=== PATIENT | male | born 1990 | race Caucasian/White ===

== ENCOUNTER 2023-05-22 08:36 | Outpatient (REF) | payer MEDICAID, SELFPAY ==
--- NOTE | ~2023-05-22 | US_ITS ---
EXAMINATION: US ABDOMEN COMPLETE CLINICAL INFORMATION: Right upper quadrant pain. COMPARISON: None available. TECHNIQUE: Real-time imaging of the abdominal viscera. Technically difficult study secondary to body habitus. FINDINGS: PANCREAS: Normal. ABDOMINAL AORTA: The proximal, mid, and distal segments are normal in caliber. INFERIOR VENA CAVA: Visualized portions are normal. LIVER: The liver is normal in size. The liver contour is normal. There is diffuse increased liver parenchymal echogenicity. No focal hepatic lesion. There is no intrahepatic biliary duct dilatation seen. GALLBLADDER: There is marked cholelithiasis, with a wall echo-shadow complex. There is no gallbladder wall thickening or pericholecystic fluid. COMMON BILE DUCT: Normal in caliber measuring 0.2 cm in diameter. RIGHT KIDNEY: Normal. No hydronephrosis. No renal calculi or focal parenchymal lesions. The kidney measures 13.9 cm in maximum dimension. LEFT KIDNEY: Normal. No hydronephrosis. No renal calculi or focal parenchymal lesions. The kidney measures 13.5 cm in maximum dimension. SPLEEN: Normal. The spleen measures 12.3 cm in maximum dimension. FREE FLUID: None. US/US abdomen complete IMPRESSION: 1. There is generalized increase in hepatic echotexture, consistent with fatty infiltration or hepatocellular disease. Please correlate clinically. No focal hepatic mass or intrahepatic biliary dilatation is seen. 2. There is marked cholelithiasis, without cholecystitis seen.
== END 2023-05-22 08:37 | disposition home or self-care (01) ==
LOC: HO.US 08:36
PROVIDERS: Visit Provider Hospitalist
DX: R10.11 Right upper quadrant pain (principal)
CPT/HCPCS: 76700

== ENCOUNTER 2025-06-23 12:07 | Outpatient (AMB) | payer MEDICAID, SELFPAY ==
--- NOTE | 2025-06-23 12:40 | MHC.OFFVIS ---
Intake Visit Reasons: Follow up Allergies doxycycline Allergy (Unknown, Verified 04/18/25 13:27) Unknown erythromycin base Allergy (Unknown, Verified 04/18/25 13:27) Unknown penicillin G Allergy (Unknown, Verified 04/18/25 13:27) Unknown Medication List - Last Reconciled 06/23/25 by Ibis Dorantes MD carbamazepine ER (Carbatrol) 600 mg PO BID cariprazine 3 mg PO DAILY clozapine 50 mg PO DAILY levetiracetam ER 1,000 mg PO DAILY loratadine 10 mg PO DAILY lorazepam 1 mg PO BEDTIME PRN pantoprazole 40 mg PO DAILY propranolol XL (Inderal XL) 80 mg PO BEDTIME HPI Comments Details: 34 years old man with morbid obesity and epilepsy. He had fallen an young age and might have sustained brain injury. In 10 years he started having seizures. Seizures included complex partial type. He had epilepsy surgery at [facility] that did not resolve with seizures and later he had a vagus nerve stimulator. He did not have anymore seizures since we last met. [facility] Medical History (Updated 06/23/25 @ 12:42 by Ibis Dorantes MD) Bipolar disorder Obesity Complex partial seizure Epilepsy Surgical History (Updated 06/23/25 @ 12:41 by Ibis Dorantes MD) S/P placement of VNS (vagus nerve stimulation) device Review of Systems Const Details: No seizures or any significant behavioral symptoms Physical Exam Neuro Other: He is alert and awake with normal spontaneity of speech fluency comprehension and flat affect. Assessment & Plan Assessment & Plan (1) Epilepsy: Comment: VNS placed in [place] Dec 04, 2015 EEG at office in Nov 2020: Abn wtih sharp and slow waves EEG at [facility] in 2019: WNL. 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 Rec: a: VNS is not working but he is not having too many seizures at this time. b: Carbamazepine 200mg, 3, twice a day c: Levetiracetam 500mg, 1, twice a day d: LFTs, carbamazepine level Orders: Orders Liver Panel Today G40.509 - Epileptic seizures related to external causes, not intractable, without status epilepticus Carbamazepine Tegretol Today G40.509 - Epileptic seizures related to external causes, not intractable, without status epilepticus Coding Level of Care Code Est Pt Level 4 (00993) Diagnoses Nonintractable epilepsy due to external causes, without status epilepticus G40.509 Epilepsy type: due to external causes Intractability: not intractable Status epilepticus: without status epilepticus S/P placement of VNS (vagus nerve stimulation) device Z96.89
--- OUTSIDE RECORDS SUMMARY | 2025-06-23 16:43 | XMS_ITS | Encounter Summary ---
Author Organization [facility] Address [address] [place] [address] Care Team Providers Care Tool Maintenance Technician Name Role Phone Felix Iglesias MD Primary Care Provider [phone] Encounter Details Date Type Department Care Team (Late st Contact Info) Description 01/20/2025 Lab Requisition [facility] [address] [facility] [place] [address] Felix Iglesias MD [address] [place] [address] Dr [address] [place], [place] Other halfway (current) drug therapy Social History Tobacco Use Types Packs/Day Years Used Date Smoking Tobacco: Never Assessed Sex and Gender Information Value Date Recorded Sex Assigned at Not on file Legal Sex Male 9:12 PM EST Gender Identity Not on file Sexual Orientation Not on file documented as of this encounter Plan of Treatment Not on file documented as of this encounter Procedures Procedure Name Priority Date/Time Associated Diagnosis Comments CBC WITH AUTO DIFFERENTIAL Routine 01/20/2025 12:00 AM EDT Other termination clerk (current) drug therapy CBC AND DIFFERENTIAL Routine 01/20/2025 12:00 AM EDT Other halfway (current) drug therapy documented in this encounter Results * (ABNORMAL) CBC auto differential (01/20/2025 12:00 AM EDT) WBC 12.6(H) 4.8 - 10.8 K/[facility] LAB HEMETOLOGY METHOD 01/20/2025 8:[address] [facility] RBC 5.00 4.50 - 5.50 M/mcL LAB HEMETOLOGY METHOD 01/20/2025 8:[address] [facility] Hemoglobin 15.3 13.5 - 17.5 g/dL LAB HEMETOLOGY METHOD 01/20/2025 8:[address] [facility] Hematocrit 45.4 42.0 - 54.0 % LAB HEMETOLOGY METHOD 01/20/2025 8:[address] [facility] MCV 90.6 79.0 - 98.0 FL LAB HEMETOLOGY METHOD 01/20/2025 8:[address] [facility] MCH 30.5 27.0 - 32.0 pcg LAB HEMETOLOGY METHOD 01/20/2025 8:[address] [facility] MCHC 33.7 32.0 - 37.0 g/dL LAB HEMETOLOGY METHOD 01/20/2025 8:[address] [facility] RDW 12.3 11.0 - 15.0 % LAB HEMETOLOGY METHOD 01/20/2025 8:[address] [facility] Platelets 327 130 - 400 K/mcL LAB HEMETOLOGY METHOD 01/20/2025 8:[address] [facility] MPV 9.6 7.0 - 11.0 FL LAB HEMETOLOGY METHOD 01/20/2025 8:[address] [facility] NRBC 0.0 <1.0 % LAB HEMETOLOGY METHOD 01/20/2025 8:[address] [facility] NRBC Absolute 0.00 <0.10 K/mcL LAB HEMETOLOGY METHOD 01/20/2025 8:[address] [facility] Neutrophils Relative 62.8 % LAB HEMETOLOGY METHOD 01/20/2025 8:[address] [facility] Lymphocytes Relative 26.3 % LAB HEMETOLOGY METHOD 01/20/2025 8:[address] [facility] Monocytes Relative 6.5 % LAB HEMETOLOGY METHOD 01/20/2025 8:[address] [facility] Eosinophils Relative 3.6 % LAB HEMETOLOGY METHOD 01/20/2025 8:[address] [facility] Basophils Relative 0.4 % LAB HEMETOLOGY METHOD 01/20/2025 8:[address] [facility] Immature Granulocytes Relative 0.4 % LAB HEMETOLOGY METHOD 01/20/2025 8:[address] [facility] Neutrophils Absolute 7.92(H) 1.50 - 7.00 K/mcL LAB HEMETOLOGY METHOD 01/20/2025 8:[address] [facility] Lymphocytes Absolute 3.32 1.00 - 5.00 K/mcL LAB HEMETOLOGY METHOD 01/20/2025 8:[address] [facility] Monocytes Absolute 0.82 0.20 - 1.00 K/mcL LAB HEMETOLOGY METHOD 01/20/2025 8:[address] [facility] Eosinophils Absolute 0.46 0.00 - 0.50 K/mcL LAB HEMETOLOGY METHOD 01/20/2025 8:[address] [facility] Basophils Absolute 0.05 0.00 - 0.20 K/mcL LAB HEMETOLOGY METHOD 01/20/2025 8:[address] [facility] Immature Granulocytes Absolute 0.05(H) 0.00 - 0.03 K/mcL LAB HEMETOLOGY METHOD 01/20/2025 8:[address] [facility] Blood Venous blood specimen / Unknown 01/20/2025 01/20/2025 7:44 AM EDT us Felix Iglesias MD LAB BLOOD ORDERABLES Final Resul t [facility] [address] [place] [address], documented in this encounter Visit Diagnoses Diagnosis Other termination clerk (current) drug therapy documented in this encounter Care Teams Tool Maintenance Technician Relationship Specialty Start Date End Date Felix Iglesias MD [address] [place] Dan PCP - General Internal Medicine 11/25/24 documented as of this encounter
--- OUTSIDE RECORDS SUMMARY | 2025-06-23 16:43 | XMS_ITS | Encounter Summary ---
Author Organization [facility] Address [address] [place] [address] Care Team Providers Care Well Treatment Offsider Name Role Phone Felix Iglesias MD Primary Care Provider [phone] Encounter Details Date Type Department Care Team (Late st Contact Info) Description 02/17/2025 Lab Requisition [facility] [address] [facility] [place] [address] Felix Iglesias MD [address] [place] [address] Dr [address] [place], [place] Other intermediate (current) drug therapy Social History Tobacco Use [...] Diagnosis Comments CBC WITH AUTO DIFFERENTIAL Routine 02/17/2025 6:30 AM EDT Other intermediate (current) drug therapy CBC AND DIFFERENTIAL Routine 02/17/2025 6:30 AM EDT Other intermediate (current) drug therapy THYROID STIMULATING HORMONE Routine 02/17/2025 6:30 AM EDT Other intermodal owner operator truck driver (current) drug therapy AMMONIA Routine 02/17/2025 6:30 AM EDT Other intermediate (current) drug therapy documented in this encounter Results * CBC auto differential (02/17/2025 6:30 AM EDT) WBC 10.4 4.8 - 10.8 K/mcL LAB HEMETOLOGY METHOD 02/17/2025 7:16 AM [facility] RBC 4.80 4.50 - 5.50 M/mcL LAB HEMETOLOGY METHOD 02/17/2025 7:16 AM [facility] Hemoglobin 14.3 13.5 - 17.5 g/dL LAB HEMETOLOGY METHOD 02/17/2025 7:16 AM [facility] Hematocrit 42.5 42.0 - 54.0 % LAB HEMETOLOGY METHOD 02/17/2025 7:16 AM [facility] MCV 89.3 79.0 - 98.0 FL LAB HEMETOLOGY METHOD 02/17/2025 7:16 AM [facility] MCH 30.0 27.0 - 32.0 pcg LAB HEMETOLOGY METHOD 02/17/2025 7:16 AM [facility] MCHC 33.6 32.0 - 37.0 g/dL LAB HEMETOLOGY METHOD 02/17/2025 7:16 AM [facility] RDW 12.2 11.0 - 15.0 % LAB HEMETOLOGY METHOD 02/17/2025 7:16 AM [facility] Platelets 288 130 - 400 K/mcL LAB HEMETOLOGY METHOD 02/17/2025 7:16 AM [facility] MPV 9.6 7.0 - 11.0 FL LAB HEMETOLOGY METHOD 02/17/2025 7:16 AM [facility] NRBC 0.0 <1.0 % LAB HEMETOLOGY METHOD 02/17/2025 7:16 AM [facility] NRBC Absolute 0.00 <0.10 K/mcL LAB HEMETOLOGY METHOD 02/17/2025 7:16 AM [facility] Neutrophils Relative 60.9 % LAB HEMETOLOGY METHOD 02/17/2025 7:16 AM [facility] Lymphocytes Relative 28.3 % LAB HEMETOLOGY METHOD 02/17/2025 7:16 AM [facility] Monocytes Relative 6.9 % LAB HEMETOLOGY METHOD 02/17/2025 7:16 AM [facility] Eosinophils Relative 3.2 % LAB HEMETOLOGY METHOD 02/17/2025 7:16 AM [facility] Basophils Relative 0.4 % LAB HEMETOLOGY METHOD 02/17/2025 7:16 AM [facility] Immature Granulocytes Relative 0.3 % LAB HEMETOLOGY METHOD 02/17/2025 7:16 AM [facility] Neutrophils Absolute 6.37 1.50 - 7.00 K/mcL LAB HEMETOLOGY METHOD 02/17/2025 7:16 AM [facility] Lymphocytes Absolute 2.95 1.00 - 5.00 K/mcL LAB HEMETOLOGY METHOD 02/17/2025 7:16 AM [facility] Monocytes Absolute 0.72 0.20 - 1.00 K/mcL LAB HEMETOLOGY METHOD 02/17/2025 7:16 AM [facility] Eosinophils Absolute 0.33 0.00 - 0.50 K/mcL LAB HEMETOLOGY METHOD 02/17/2025 7:16 AM [facility] Basophils Absolute 0.04 0.00 - 0.20 K/mcL LAB HEMETOLOGY METHOD 02/17/2025 7:16 AM [facility] Immature Granulocytes Absolute 0.03 0.00 - 0.03 K/mcL LAB HEMETOLOGY METHOD 02/17/2025 7:16 AM [facility] Blood Venous blood specimen / Unknown 02/17/2025 6:30 AM EDT 02/17/2025 7:10 AM EDT us Felix Iglesias MD LAB BLOOD ORDERABLES Final Resul t Performing Organization Address [facility] de Phone Number [facility] [address] [place] [address], [place] [phone] * Thyroid stimulating hormone (02/17/2025 6:30 AM EDT) TSH 2.34 0.40 - 4.00 mcIU/mL LAB CHEMISTRY METHOD 02/17/2025 10:09 AM EDT [facility] Blood Venous blood specimen / Unknown 02/17/2025 6:30 AM EDT 02/17/2025 7:10 AM EDT us Felix Iglesias MD LAB BLOOD ORDERABLES Final Resul t Performing Organization Address [facility] de Phone Number [facility] [address] [place] [address], [place] [phone] * Ammonia (02/17/2025 6:30 AM EDT) Ammonia 18 11 - 35 mcmol/L LAB CHEMISTRY METHOD 02/17/2025 7:29 AM EDT [facility] Blood Venous blood specimen / Unknown 02/17/2025 6:30 AM EDT 02/17/2025 7:10 AM EDT us Felix Iglesias MD LAB BLOOD ORDERABLES Final Resul t Performing Organization Address [facility] de Phone Number [facility] [address] [place] [address], [place] [phone] documented in this encounter Visit Diagnoses Diagnosis Other intermediate (current) drug therapy documented in this encounter Care Teams Well Treatment Offsider Relationship Specialty Start Date End Date Felix Iglesias MD [address] [place] [address] Dr Marty Dan [place] PCP - General Internal Medicine 11/25/24 documented as of this encounter
--- OUTSIDE RECORDS SUMMARY | 2025-06-23 16:43 | XMS_ITS | Encounter Summary ---
Author Organization [facility] Address [address] [place] [address] Care Team Providers Care Cocoa Bean Roaster Name Role Phone Felix Iglesias MD Primary Care Provider Encounter Details Date Type Department Care Team (Late st Contact Info) Description 11/25/2024 Lab Requisition [facility] Lab [address] [facility] [place] [address] Felix Iglesias MD [address] [place] [address] [address] [place] Other ferry terminal agent (current) drug therapy; Localization-related (focal) (partial) symptomatic epilepsy and epileptic syndromes with complex partial seizures, not intractable, without status epilepticus (CMS/HCC V24, CMS/HCC V28); Hyperlipidemia, unspecified Social History Tobacco Use Types Packs/Day Years [...] Procedure Name Priority Date/Time Associated Diagnosis Comments LIPID PANEL WITH REFLEX TO DIRECT LDL Routine 11/25/2024 7:20 AM EST Other ferry terminal agent (current) drug therapy Localization-relate d (focal) (partial) symptomatic epilepsy and epileptic syndromes with complex partial seizures, not intractable, without status epilepticus (CMS/HCC) Hyperlipidemia, unspecified CBC WITH AUTO DIFFERENTIAL Routine 11/25/2024 7:20 AM EST Other ferry terminal agent (current) drug therapy Localization-relate d (focal) (partial) symptomatic epilepsy and epileptic syndromes with complex partial seizures, not intractable, without status epilepticus (CMS/HCC) Hyperlipidemia, unspecified LEVETIRACETAM LEVEL Routine 11/25/2024 7 :20 AM EST Other detention (current) drug therapy Localization-relate d (focal) (partial) symptomatic epilepsy and epileptic syndromes with complex partial seizures, not intractable, without status epilepticus (CMS/HCC) Hyperlipidemia, unspecified CBC AND DIFFERENTIAL Routine 11/25/2024 7:20 AM EST Other detention (current) drug therapy Localization-relate d (focal) (partial) symptomatic epilepsy and epileptic syndromes with complex partial seizures, not intractable, without status epilepticus (CMS/HCC) Hyperlipidemia, unspecified CARBAMAZEPINE LEVEL, TOTAL Routine 11/25/2024 7:20 AM EST Other detention (current) drug therapy Localization-relate d (focal) (partial) symptomatic epilepsy and epileptic syndromes with complex partial seizures, not intractable, without status epilepticus (CMS/HCC) Hyperlipidemia, unspecified documented in this encounter Results * CBC auto differential (11/25/2024 7:20 AM EST) WBC 9.8 4.8 - 10.8 K/mcL LAB HEMETOLOGY METHOD 11/25/2024 8:12 AM [facility] RBC 5.10 4.50 - 5.50 M/mcL LAB HEMETOLOGY METHOD 11/25/2024 8:12 AM [facility] Hemoglobin 15.6 13.5 - 17.5 g/dL LAB HEMETOLOGY METHOD 11/25/2024 8:12 AM [facility] Hematocrit 47.2 42.0 - 54.0 % LAB HEMETOLOGY METHOD 11/25/2024 8:12 AM [facility] MCV 92.2 79.0 - 98.0 FL LAB HEMETOLOGY METHOD 11/25/2024 8:12 AM [facility] MCH 30.5 27.0 - 32.0 pcg LAB HEMETOLOGY METHOD 11/25/2024 8:12 AM [facility] MCHC 33.1 32.0 - 37.0 g/dL LAB HEMETOLOGY METHOD 11/25/2024 8:12 AM [facility] RDW 12.3 11.0 - 15.0 % LAB HEMETOLOGY METHOD 11/25/2024 8:12 AM [facility] Platelets 292 130 - 400 K/mcL LAB HEMETOLOGY METHOD 11/25/2024 8:12 AM [facility] MPV 10.3 7.0 - 11.0 FL LAB HEMETOLOGY METHOD 11/25/2024 8:12 AM [facility] NRBC 0.0 <1.0 % LAB HEMETOLOGY METHOD 11/25/2024 8:12 AM [facility] NRBC Absolute 0.00 <0.10 K/mcL LAB HEMETOLOGY METHOD 11/25/2024 8:12 AM [facility] Neutrophils Relative 61.3 % LAB HEMETOLOGY METHOD 11/25/2024 8:12 AM [facility] Lymphocytes Relative 27.8 % LAB HEMETOLOGY METHOD 11/25/2024 8:12 AM [facility] Monocytes Relative 6.8 % LAB HEMETOLOGY METHOD 11/25/2024 8:12 AM [facility] Eosinophils Relative 3.5 % LAB HEMETOLOGY METHOD 11/25/2024 8:12 AM [facility] Basophils Relative 0.3 % LAB HEMETOLOGY METHOD 11/25/2024 8:12 AM [facility] Immature Granulocytes Relative 0.3 % LAB HEMETOLOGY METHOD 11/25/2024 8:12 AM [facility] Neutrophils Absolute 5.99 1.50 - 7.00 K/mcL LAB HEMETOLOGY METHOD 11/25/2024 8:12 AM [facility] Lymphocytes Absolute 2.72 1.00 - 5.00 K/mcL LAB HEMETOLOGY METHOD 11/25/2024 8:12 AM EST [facility] Monocytes Absolute 0.66 0.20 - 1.00 K/mcL LAB HEMETOLOGY METHOD 11/25/2024 8:12 AM EST [facility] Eosinophils Absolute 0.34 0.00 - 0.50 K/mcL LAB HEMETOLOGY METHOD 11/25/2024 8:12 AM EST [facility] Basophils Absolute 0.03 0.00 - 0.20 K/mcL LAB HEMETOLOGY METHOD 11/25/2024 8:12 AM EST [facility] Immature Granulocytes Absolute 0.03 0.00 - 0.03 K/mcL LAB HEMETOLOGY METHOD 11/25/2024 8:12 AM EST [facility] Blood Venous blood specimen / Unknown 11/25/2024 7:20 AM EST 11/25/2024 7:54 AM EST Felix Iglesias MD LAB BLOOD ORDERABLES Final Resul t [facility] [address] [place] [address], * Levetiracetam level (11/25/2024 7:20 AM EST) Levetiracetam 6.1 3.0 - 60.0 ug/mL 11/27/2024 7:19 AM EST [facility] Comment: Steady state trough serum or plasma levels following doses of 1000 to 3000 mg/Day: 3 to 37 ug/mL. The same dosage regimen will typically result in peak levels of 10 to 60 ug/mL, at approximately 1.5 hours post dose. If applicable, any drug confirmation testing reported here was developed and the performance characteristics determined by [facility]. This confirmation testing has not been cleared or approved by the FDA. The laboratory is regulated under CLIA as qualified to perform high-complexity testing. This test is used for patient testing purposes. It should not be regarded as investigational or for research. Test performed at [facility], [address], [place] [address] Aleta Lipscomb MD, PhD - Reed Maker Blood Venous blood specimen / Unknown 11/25/2024 7:20 AM EST 11/25/2024 7:54 AM EST us Felix Iglesias MD LAB BLOOD ORDERABLES Final Resul t [facility] [address] [place] [address] * Carbamazepine level, total (11/25/2024 7:20 AM EST) Carbamazepine Level 9.6 8.0 - 12.0 mcg/mL LAB CHEMISTRY METHOD 11/25/2024 8:22 AM EST [facility] Blood Venous blood specimen / Unknown 11/25/2024 7:20 AM EST 11/25/2024 7:54 AM EST us Felix Iglesias MD LAB BLOOD ORDERABLES Final Resul t Performing Organization Address City/[facility]/ZIP Co de Phone Number [facility] [address] [place] [address], [place] [phone] * (ABNORMAL) Lipid panel with reflex to direct LDL (11/25/2024 7:20 AM EST) Cholesterol 199 0 - 200 mg/dL LAB CHEMISTRY METHOD 11/25/2024 8:22 AM EST [facility] Triglycerides 143 0 - 150 mg/dL LAB CHEMISTRY METHOD 11/25/2024 8:22 AM EST [facility] HDL 44 >=40 mg/dL LAB CHEMISTRY METHOD 11/25/2024 8:22 AM EST [facility] LDL Calculated 126(H) 0 - 100 mg/dL LAB CHEMISTRY METHOD 11/25/2024 8:22 AM EST [facility] VLDL Cholesterol Amadeo 28.6 mg/dL LAB CHEMISTRY METHOD 11/25/2024 8:22 AM EST [facility] Non HDL Chol. (LDL+VLDL) 155(H) <145 mg/dL LAB CHEMISTRY METHOD 11/25/2024 8:22 AM EST [facility] Chol/HDL Ratio 4.5(H) 0.0 - 4.4 LAB CHEMISTRY METHOD 11/25/2024 8:22 AM EST [facility] Blood Venous blood specimen / Unknown 11/25/2024 7:20 AM EST 11/25/2024 7:54 AM EST us Felix Iglesias MD LAB BLOOD ORDERABLES Final Resul t [facility] [address] [place] [address], documented in this encounter Visit Diagnoses Diagnosis Other detention (current) drug therapy Localization-related (focal) (partial) symptomatic epilepsy and epileptic syndromes with complex partial seizures, not intractable, without status epilepticus (CMS/HCC V24, CMS/HCC V28) Hyperlipidemia, unspecified documented in this encounter Care Teams Cocoa Bean Roaster Relationship Specialty Start Date End Date Felix Iglesias MD [address] [place], [place] PCP - General Internal Medicine 11/25/24 documented as of this encounter
--- OUTSIDE RECORDS SUMMARY | 2025-06-23 16:43 | XMS_ITS | Encounter Summary ---
Author Organization [facility] Address [address] [place] [address] Care Team Providers Care Upward Bound Director Name Role Phone Felix Iglesias MD Primary Care Provider [phone] Encounter Details Date Type Department Care Team (Late st Contact Info) Description 05/12/2025 Lab Requisition [facility] Lab [address] [facility] [place] [address] Felix Iglesias MD [address] [place] [address] Dr [address] [place], [place] Other senior care (current) drug therapy Social History Tobacco Use [...] Diagnosis Comments CBC WITH AUTO DIFFERENTIAL Routine 05/12/2025 6:21 AM EDT Other senior care (current) drug therapy CBC AND DIFFERENTIAL Routine 05/12/2025 6:21 AM EDT Other senior care (current) drug therapy documented in this encounter Results * CBC auto differential (05/12/2025 6:21 AM EDT) WBC 10.3 4.8 - 10.8 K/[facility] LAB HEMETOLOGY METHOD 05/12/2025 8:41 AM EDT [facility] LAB RBC 5.20 4.50 - 5.50 M/mcL LAB HEMETOLOGY METHOD 05/12/2025 8:41 AM EDT [facility] LAB Hemoglobin 15.7 13.5 - 17.5 g/dL LAB HEMETOLOGY METHOD 05/12/2025 8:41 AM [facility] LAB Hematocrit 46.9 42.0 - 54.0 % LAB HEMETOLOGY METHOD 05/12/2025 8:41 AM [facility] LAB MCV 90.4 79.0 - 98.0 FL LAB HEMETOLOGY METHOD 05/12/2025 8:41 AM [facility] LAB MCH 30.3 27.0 - 32.0 pcg LAB HEMETOLOGY METHOD 05/12/2025 8:41 AM [facility] LAB MCHC 33.5 32.0 - 37.0 g/dL LAB HEMETOLOGY METHOD 05/12/2025 8:41 AM [facility] LAB RDW 12.5 11.0 - 15.0 % LAB HEMETOLOGY METHOD 05/12/2025 8:41 AM [facility] LAB Platelets 277 130 - 400 K/mcL LAB HEMETOLOGY METHOD 05/12/2025 8:41 AM [facility] LAB MPV 10.0 7.0 - 11.0 FL LAB HEMETOLOGY METHOD 05/12/2025 8:41 AM [facility] LAB NRBC 0.0 <1.0 % LAB HEMETOLOGY METHOD 05/12/2025 8:41 AM [facility] LAB NRBC Absolute 0.00 <0.10 K/mcL LAB HEMETOLOGY METHOD 05/12/2025 8:41 AM [facility] LAB Neutrophils Relative 57.0 % LAB HEMETOLOGY METHOD 05/12/2025 8:41 AM [facility] LAB Lymphocytes Relative 28.8 % LAB HEMETOLOGY METHOD 05/12/2025 8:41 AM [facility] LAB Monocytes Relative 9.1 % LAB HEMETOLOGY METHOD 05/12/2025 8:41 AM [facility] LAB Eosinophils Relative 4.2 % LAB HEMETOLOGY METHOD 05/12/2025 8:41 AM EDT [facility] LAB Basophils Relative 0.6 % LAB HEMETOLOGY METHOD 05/12/2025 8:41 AM [facility] LAB Immature Granulocytes Relative 0.3 % LAB HEMETOLOGY METHOD 05/12/2025 8:41 AM EDT [facility] LAB Neutrophils Absolute 5.86 1.50 - 7.00 K/mcL LAB HEMETOLOGY METHOD 05/12/2025 8:41 AM EDT [facility] LAB Lymphocytes Absolute 2.96 1.00 - 5.00 K/mcL LAB HEMETOLOGY METHOD 05/12/2025 8:41 AM [facility] LAB Monocytes Absolute 0.93 0.20 - 1.00 K/mcL LAB HEMETOLOGY METHOD 05/12/2025 8:41 AM EDT [facility] LAB Eosinophils Absolute 0.43 0.00 - 0.50 K/mcL LAB HEMETOLOGY METHOD 05/12/2025 8:41 AM EDT [facility] LAB Basophils Absolute 0.06 0.00 - 0.20 K/mcL LAB HEMETOLOGY METHOD 05/12/2025 8:41 AM [facility] LAB Immature Granulocytes Absolute 0.03 0.00 - 0.03 K/mcL LAB HEMETOLOGY METHOD 05/12/2025 8:41 AM [facility] LAB Blood Venous blood specimen / Unknown 05/12/2025 6:21 AM EDT 05/12/2025 8:26 AM EDT us Felix Iglesias MD LAB BLOOD ORDERABLES Final Resul t [facility] LAB [address] [place] [address], documented in this encounter Visit Diagnoses Diagnosis Other senior care (current) drug therapy documented in this encounter Care Teams Upward Bound Director Relationship Specialty Start Date End Date Felix Iglesias MD [address] [place] [address] Dr [address] ALLEGRA Dan PCP - General Internal Medicine 11/25/24 documented as of this encounter
--- OUTSIDE RECORDS SUMMARY | 2025-06-23 16:43 | XMS_ITS | Encounter Summary ---
Author Organization [facility] Address [address] [place] [address] Care Team Providers Care Assistant Professor Of Marine Biology Name Role Phone Felix Iglesias MD Primary Care Provider [phone] Encounter Details Date Type Department Care Team (Late st Contact Info) Description 08/30/2024 Lab Requisition [facility] Lab [address] [facility] [place] [address] Felix Iglesias MD [address] [place] [address] Dr [address] ALLEGRA Dan Morbid (severe) obesity due to excess calories (CMS/HCC V24, CMS/HCC V28); Other pastoral counselor (current) drug therapy Social History Tobacco Use [...] Diagnosis Comments CBC WITH AUTO DIFFERENTIAL Routine 08/30/2024 7:35 AM EST Morbid (severe) obesity due to excess calories (CMS/HCC) Other assisted (current) drug therapy CBC AND DIFFERENTIAL Routine 08/30/2024 7:35 AM EST Morbid (severe) obesity due to excess calories (CMS/HCC) Other pastoral counselor (current) drug therapy THYROID STIMULATING HORMONE Routine 08/30/2024 7:35 AM EST Morbid (severe) obesity due to excess calories (CMS/HCC) Other assisted (current) drug therapy AMMONIA Routine 08/30/2024 7:35 AM EST Morbid (severe) obesity due to excess calories (CMS/HCC) Other assisted (current) drug therapy documented in this encounter Results * (ABNORMAL) CBC auto differential (08/30/2024 7:35 AM EST) WBC 11.0(H) 4.8 - 10.8 K/mcL LAB HEMETOLOGY METHOD 08/30/2024 8:40 AM [facility] LAB RBC 5.00 4.50 - 5.50 M/mcL LAB HEMETOLOGY METHOD 08/30/2024 8:40 AM [facility] LAB Hemoglobin 15.2 13.5 - 17.5 g/dL LAB HEMETOLOGY METHOD 08/30/2024 8:40 AM [facility] LAB Hematocrit 46.3 42.0 - 54.0 % LAB HEMETOLOGY METHOD 08/30/2024 8:40 AM [facility] LAB MCV 92.4 79.0 - 98.0 FL LAB HEMETOLOGY METHOD 08/30/2024 8:40 AM [facility] LAB MCH 30.3 27.0 - 32.0 pcg LAB HEMETOLOGY METHOD 08/30/2024 8:40 AM [facility] LAB MCHC 32.8 32.0 - 37.0 g/dL LAB HEMETOLOGY METHOD 08/30/2024 8:40 AM [facility] LAB RDW 12.3 11.0 - 15.0 % LAB HEMETOLOGY METHOD 08/30/2024 8:40 AM [facility] LAB Platelets 299 130 - 400 K/mcL LAB HEMETOLOGY METHOD 08/30/2024 8:40 AM [facility] LAB MPV 9.9 7.0 - 11.0 FL LAB HEMETOLOGY METHOD 08/30/2024 8:40 AM [facility] LAB NRBC 0.0 <1.0 % LAB HEMETOLOGY METHOD 08/30/2024 8:40 AM [facility] LAB NRBC Absolute 0.00 <0.10 K/mcL LAB HEMETOLOGY METHOD 08/30/2024 8:40 AM [facility] LAB Neutrophils Relative 64.3 % LAB HEMETOLOGY METHOD 08/30/2024 8:40 AM [facility] LAB Lymphocytes Relative 25.4 % LAB HEMETOLOGY METHOD 08/30/2024 8:40 AM [facility] LAB Monocytes Relative 6.0 % LAB HEMETOLOGY METHOD 08/30/2024 8:40 AM [facility] LAB Eosinophils Relative 3.6 % LAB HEMETOLOGY METHOD 08/30/2024 8:40 AM [facility] LAB Basophils Relative 0.4 % LAB HEMETOLOGY METHOD 08/30/2024 8:40 AM [facility] LAB Immature Granulocytes Relative 0.3 % LAB HEMETOLOGY METHOD 08/30/2024 8:40 AM [facility] LAB Neutrophils Absolute 7.09(H) 1.50 - 7.00 K/mcL LAB HEMETOLOGY METHOD 08/30/2024 8:40 AM [facility] LAB Lymphocytes Absolute 2.80 1.00 - 5.00 K/mcL LAB HEMETOLOGY METHOD 08/30/2024 8:40 AM [facility] LAB Monocytes Absolute 0.66 0.20 - 1.00 K/mcL LAB HEMETOLOGY METHOD 08/30/2024 8:40 AM [facility] LAB Eosinophils Absolute 0.40 0.00 - 0.50 K/mcL LAB HEMETOLOGY METHOD 08/30/2024 8:40 AM [facility] LAB Basophils Absolute 0.04 0.00 - 0.20 K/mcL LAB HEMETOLOGY METHOD 08/30/2024 8:40 AM [facility] LAB Immature Granulocytes Absolute 0.03 0.00 - 0.03 K/mcL LAB HEMETOLOGY METHOD 08/30/2024 8:40 AM [facility] LAB Blood Venous blood specimen / Unknown 08/30/2024 7:35 AM EST 08/30/2024 8:33 AM EST us Felix Iglesias MD LAB BLOOD ORDERABLES Final Resul t Performing Organization Address [facility]/ZIP Co de Phone Number [facility] LAB [address] [place] [address], [place] [phone] * Ammonia (08/30/2024 7:35 AM EST) Ammonia 23 11 - 35 mcmol/L LAB CHEMISTRY METHOD 08/30/2024 9:21 AM EST [facility] LAB Blood Venous blood specimen / Unknown 08/30/2024 7:35 AM EST 08/30/2024 8:33 AM EST us Felix Iglesias MD LAB BLOOD ORDERABLES Final Resul t Performing Organization Address [facility] Co de Phone Number [facility] LAB [address] [place] [address], [place] [phone] * Thyroid stimulating hormone (08/30/2024 7:35 AM EST) TSH 1.80 0.40 - 4.00 mcIU/mL LAB CHEMISTRY METHOD 08/30/2024 9:11 AM EST [facility] LAB Blood Venous blood specimen / Unknown 08/30/2024 7:35 AM EST 08/30/2024 8:33 AM EST us Felix Iglesias MD LAB BLOOD ORDERABLES Final Resul t Performing Organization Address [facility] Co de Phone Number [facility] LAB [address] [place] [address], [place] [phone] documented in this encounter Visit Diagnoses Diagnosis Morbid (severe) obesity due to excess calories (CMS/HCC V24, CMS/HCC V28) Other pastoral counselor (current) drug therapy documented in this encounter Care Teams Assistant Professor Of Marine Biology Relationship Specialty Start Date End Date Felix Iglesias MD [address] [place] [address] Dr [address] ALLEGRA Dan PCP - General Internal Medicine 11/25/24 documented as of this encounter
--- OUTSIDE RECORDS SUMMARY | 2025-06-23 16:43 | XMS_ITS | Encounter Summary ---
[facility] Address [address] [place] [address] Care Team Providers Care Rope Maker Name Role Phone Felix Iglesias MD Primary Care Provider [phone] Encounter Details Date Type Department Care Team (Late st Contact Info) Description 09/30/2024 Lab Requisition [facility] Lab [address] [facility] [place] [address] Felix Iglesias MD [address] [place] [address] Dr [address] [place], [place] Other halfway (current) drug therapy Social History [...] Diagnosis Comments CBC WITH AUTO DIFFERENTIAL Routine 09/30/2024 5:15 AM EST Other halfway (current) drug therapy CBC AND DIFFERENTIAL Routine 09/30/2024 5:15 AM EST Other halfway (current) drug therapy documented in this encounter Results * (ABNORMAL) CBC auto differential (09/30/2024 5:15 AM EST) WBC 10.0 4.8 - 10.8 K/[facility] LAB HEMETOLOGY METHOD 09/30/2024 6:30 AM EST [facility] LAB RBC 4.70 4.50 - 5.50 M/mcL LAB HEMETOLOGY METHOD 09/30/2024 6:30 AM EST [facility] LAB Hemoglobin 14.3 13.5 - 17.5 g/dL LAB HEMETOLOGY METHOD 09/30/2024 6:30 AM [facility] LAB Hematocrit 42.6 42.0 - 54.0 % LAB HEMETOLOGY METHOD 09/30/2024 6:30 AM [facility] LAB MCV 91.4 79.0 - 98.0 FL LAB HEMETOLOGY METHOD 09/30/2024 6:30 AM [facility] LAB MCH 30.7 27.0 - 32.0 pcg LAB HEMETOLOGY METHOD 09/30/2024 6:30 AM [facility] LAB MCHC 33.6 32.0 - 37.0 g/dL LAB HEMETOLOGY METHOD 09/30/2024 6:30 AM [facility] LAB RDW 12.4 11.0 - 15.0 % LAB HEMETOLOGY METHOD 09/30/2024 6:30 AM [facility] LAB Platelets 262 130 - 400 K/mcL LAB HEMETOLOGY METHOD 09/30/2024 6:30 AM [facility] LAB MPV 10.1 7.0 - 11.0 FL LAB HEMETOLOGY METHOD 09/30/2024 6:30 AM [facility] LAB NRBC 0.0 <1.0 % LAB HEMETOLOGY METHOD 09/30/2024 6:30 AM [facility] LAB NRBC Absolute 0.00 <0.10 K/mcL LAB HEMETOLOGY METHOD 09/30/2024 6:30 AM [facility] LAB Neutrophils Relative 58.3 % LAB HEMETOLOGY METHOD 09/30/2024 6:30 AM [facility] LAB Lymphocytes Relative 25.2 % LAB HEMETOLOGY METHOD 09/30/2024 6:30 AM [facility] LAB Monocytes Relative 10.3 % LAB HEMETOLOGY METHOD 09/30/2024 6:30 AM [facility] LAB Eosinophils Relative 5.3 % LAB HEMETOLOGY METHOD 09/30/2024 6:30 AM EST [facility] LAB Basophils Relative 0.6 % LAB HEMETOLOGY METHOD 09/30/2024 6:30 AM EST [facility] LAB Immature Granulocytes Relative 0.3 % LAB HEMETOLOGY METHOD 09/30/2024 6:30 AM [facility] LAB Neutrophils Absolute 5.81 1.50 - 7.00 K/mcL LAB HEMETOLOGY METHOD 09/30/2024 6:30 AM EST [facility] LAB Lymphocytes Absolute 2.51 1.00 - 5.00 K/mcL LAB HEMETOLOGY METHOD 09/30/2024 6:30 AM EST [facility] LAB Monocytes Absolute 1.03(H) 0.20 - 1.00 K/mcL LAB HEMETOLOGY METHOD 09/30/2024 6:30 AM EST [facility] LAB Eosinophils Absolute 0.53(H) 0.00 - 0.50 K/mcL LAB HEMETOLOGY METHOD 09/30/2024 6:30 AM EST [facility] LAB Basophils Absolute 0.06 0.00 - 0.20 K/mcL LAB HEMETOLOGY METHOD 09/30/2024 6:30 AM EST [facility] LAB Immature Granulocytes Absolute 0.03 0.00 - 0.03 K/mcL LAB HEMETOLOGY METHOD 09/30/2024 6:30 AM [facility] LAB Blood Venous blood specimen / Unknown 09/30/2024 5:15 AM EST 09/30/2024 6:18 AM EST us Felix Iglesias MD LAB BLOOD ORDERABLES Final Resul t [facility]) [facility] LAB [address] [place] [address], documented in this encounter Visit Diagnoses Diagnosis Other halfway (current) drug therapy documented in this encounter Care Teams Rope Maker Relationship Specialty Start Date End Date Felix Iglesias MD [address] [place] [address] Dr [address] ALLEGRA Dan PCP - General Internal Medicine 11/25/24 documented as of this encounter
--- OUTSIDE RECORDS SUMMARY | 2025-06-23 16:43 | XMS_ITS | Clinical Summary ---
Author Organization [facility] Address [address] [place] [address] Phone Care Team Providers Care Cyber Engineer Name Role Phone Felix Iglesias MD Primary Care Provider [phone] Encounters Date Type Department Care Team Description 06/08/2025 Lab Requisition [facility] Lab [address] [place] [phone] Felix Iglesias MD Other group home (current) drug therapy; Encounter for therapeutic drug level monitoring 05/26/2025 Lab Requisition [facility] Lab [address] [place] [phone] Felix Iglesias MD Hyperlipidemia, unspecified; Other superintendent container terminal (current) drug therapy 05/12/2025 Lab Requisition [facility] Lab [address] [place] [phone] Felix Iglesias MD Other superintendent container terminal (current) drug therapy 04/14/2025 Lab Requisition [facility] [address] [place] [phone] Felix Iglesias MD Other superintendent container terminal (current) drug therapy from Last 3 Months Social History Tobacco Use Types Packs/Day Years Used Date Smoking Tobacco: Never Assessed Sex and Gender Information Value Date Recorded Sex Assigned at Not on file Legal Sex Male 9:12 PM EST Gender Identity Not on file Sexual Orientation Not on file Plan of Treatment Health Maintenance Due Date Last Done Comments DTaP,Tdap,and Td Vaccines (1 - Tdap) 2008 Hepatitis B Vaccines (1 of 3 - 19+ 3-dose series) 2008 HIV Screening 09/10/2022 Hepatitis C Screening 09/10/2022 Social Influencers of Health Screening 09/10/2022 Depression Screening 10/09/2024 COVID-19 Vaccine (1 - 2023-2 5 season) 2025 Influenza Vaccine (#1) 2025 Cholesterol Screening (Lipid Panel) 05/26/2030 05/26/2025, 11/25/2024 HIB Vaccines Aged Out No longer eligi ble based on patient's age to complete this topic HPV Vaccines Aged Out No longer eligi ble based on patient's age to complete this topic Hepatitis A Vaccines Aged Out No long er eligible based on patient's age to complete this topic IPV Vaccines Aged Out No longer eligi ble based on patient's age to complete this topic MMR Vaccines Aged Out No longer eligi ble based on patient's age to complete this topic Meningococcal ACWY Vaccine Aged Out N o longer eligible based on patient's age to complete this topic Meningococcal B Vaccine Aged Out No l onger eligible based on patient's age to complete this topic Pneumococcal Vaccine: Pediatrics (0 to 5 Years) and At-Risk Patients (6 to 49 Years) Aged Out No longer eligible b ased on patient's age to complete this topic RSV Immunization Patients Under 20 months Aged Out No longer eligible b ased on patient's age to complete this topic Varicella Vaccines Aged Out No longer eligible based on patient's age to complete this topic Procedures Procedure Name Priority Date/Time Associated Diagnosis Comments SST - GOLD Routine 06/08/2025 1:15 PM EDT Other group home (current) drug therapy Encounter for therapeutic drug level monitoring CBC WITH AUTO DIFFERENTIAL Routine 06/08/2025 1:15 PM EDT Other [facility] container terminal (current) drug therapy Encounter for therapeutic drug level monitoring CBC AND DIFFERENTIAL Routine 06/08/2025 1:15 PM EDT Other group home (current) drug therapy Encounter for therapeutic drug level monitoring CBC WITH AUTO DIFFERENTIAL Routine 05/26/2025 6:00 AM EDT Hyperlipidemia, unspecified Other group home (current) drug therapy CARBAMAZEPINE LEVEL, TOTAL Routine 05/26/2025 6:00 AM EDT Hyperlipidemia, unspecified Other [facility] container terminal (current) drug therapy CBC AND DIFFERENTIAL Routine 05/26/2025 6:00 AM EDT Hyperlipidemia, unspecified Other [facility] container terminal (current) drug therapy LEVETIRACETAM LEVEL Routine 05/26/2025 6 :00 AM EDT Hyperlipidemia, unspecified Other [facility] container terminal (current) drug therapy LIPID PANEL WITH REFLEX TO DIRECT LDL Routine 05/26/2025 6:00 AM EDT Hyperlipidemia, unspecified Other group home (current) drug therapy CBC WITH AUTO DIFFERENTIAL Routine 05/12/2025 6:21 AM EDT Other group home (current) drug therapy CBC AND DIFFERENTIAL Routine 05/12/2025 6:21 AM EDT Other group home (current) drug therapy CBC WITH AUTO DIFFERENTIAL Routine 04/14/2025 6:47 AM EDT Other group home (current) drug therapy CBC AND DIFFERENTIAL Routine 04/14/2025 6:47 AM EDT Other [facility] container terminal (current) drug therapy COMPREHENSIVE METABOLIC PANEL Routine 04/14/2025 6:47 AM EDT Other superintendent container terminal (current) drug therapy from Last 3 Months Results * SST tube (06/08/2025 1:15 PM EDT) Extra Tube Hold for add-ons. 06/08/2025 4:01 PM EDT [facility] Comment:Auto resulted. Blood Venous blood specimen / Unknown 06/08/2025 1:15 PM EDT 06/08/2025 2:08 PM EDT us Felix Iglesias MD LAB BLOOD ORDERABLES Final Resul t [facility] [address] [place] [address], * (ABNORMAL) CBC auto differential (06/08/2025 1:15 PM EDT) Only the most recent of4 resultswithin the time period is included. [facility] Signature WBC 12.3(H) 4.8 - 10.8 K/mcL LAB HEMETOLOGY METHOD 06/08/2025 2:28 PM EDT [facility] RBC 5.00 4.50 - 5.50 M/mcL LAB HEMETOLOGY METHOD 06/08/2025 2:28 PM EDT [facility] Hemoglobin 15.1 13.5 - 17.5 g/dL LAB HEMETOLOGY METHOD 06/08/2025 2:28 [facility] Hematocrit 46.3 42.0 - 54.0 % LAB HEMETOLOGY METHOD 06/08/2025 2:28 PM [facility] MCV 92.2 79.0 - 98.0 FL LAB HEMETOLOGY METHOD 06/08/2025 2:28 PM [facility] MCH 30.1 27.0 - 32.0 pcg LAB HEMETOLOGY METHOD 06/08/2025 2:28 PM [facility] MCHC 32.6 32.0 - 37.0 g/dL LAB HEMETOLOGY METHOD 06/08/2025 2:28 PM [facility] RDW 12.4 11.0 - 15.0 % LAB HEMETOLOGY METHOD 06/08/2025 2:28 PM EDT [facility] Platelets 325 130 - 400 K/mcL LAB HEMETOLOGY METHOD 06/08/2025 2:28 PM [facility] MPV 10.1 7.0 - 11.0 FL LAB HEMETOLOGY METHOD 06/08/2025 2:28 PM [facility] NRBC 0.0 <1.0 % LAB HEMETOLOGY METHOD 06/08/2025 2:28 PM EDT [facility] NRBC Absolute 0.00 <0.10 K/mcL LAB HEMETOLOGY METHOD 06/08/2025 2:28 PM [facility] Neutrophils Relative 58.1 % LAB HEMETOLOGY METHOD 06/08/2025 2:28 PM [facility] Lymphocytes Relative 29.2 % LAB HEMETOLOGY METHOD 06/08/2025 2:28 PM [facility] Monocytes Relative 8.3 % LAB HEMETOLOGY METHOD 06/08/2025 2:28 PM [facility] Eosinophils Relative 3.6 % LAB HEMETOLOGY METHOD 06/08/2025 2:28 PM [facility] Basophils Relative 0.5 % LAB HEMETOLOGY METHOD 06/08/2025 2:28 PM [facility] Immature Granulocytes Relative 0.3 % LAB HEMETOLOGY METHOD 06/08/2025 2:28 PM [facility] Neutrophils Absolute 7.11(H) 1.50 - 7.00 K/mcL LAB HEMETOLOGY METHOD 06/08/2025 2:28 PM [facility] Lymphocytes Absolute 3.58 1.00 - 5.00 K/mcL LAB HEMETOLOGY METHOD 06/08/2025 2:28 PM [facility] Monocytes Absolute 1.02(H) 0.20 - 1.00 K/mcL LAB HEMETOLOGY METHOD 06/08/2025 2:28 PM [facility] Eosinophils Absolute 0.44 0.00 - 0.50 K/mcL LAB HEMETOLOGY METHOD 06/08/2025 2:28 PM [facility] Basophils Absolute 0.06 0.00 - 0.20 K/mcL LAB HEMETOLOGY METHOD 06/08/2025 2:28 PM [facility] Immature Granulocytes Absolute 0.04(H) 0.00 - 0.03 K/mcL LAB HEMETOLOGY METHOD 06/08/2025 2:28 PM EDT [facility] Blood Venous blood specimen / Unknown 06/08/2025 1:15 PM EDT 06/08/2025 2:08 PM EDT us Felix Iglesias MD LAB BLOOD ORDERABLES Final Resul t [facility] [address] [place] [address], [place] [phone] * (ABNORMAL) Lipid panel with reflex to direct LDL (05/26/2025 6:00 AM EDT) Cholesterol 197 0 - 200 mg/dL LAB CHEMISTRY METHOD 05/26/2025 7:11 AM EDT [facility] Triglycerides 126 0 - 150 mg/dL LAB CHEMISTRY METHOD 05/26/2025 7:11 AM EDT [facility] HDL 45 >=40 mg/dL LAB CHEMISTRY METHOD 05/26/2025 7:11 AM EDT [facility] LDL Calculated 127(H) 0 - 100 mg/dL LAB CHEMISTRY METHOD 05/26/2025 7:11 AM EDT [facility] Comment:Estimated LDL Calcul ated using equation: Total cholesterol - HDL cholesterol - (Triglycerides/5) VLDL Cholesterol Amadeo 25.2 mg/dL LAB CHEMISTRY METHOD 05/26/2025 7:11 AM EDT [facility] Non HDL Chol. (LDL+VLDL) 152(H) <145 mg/dL LAB CHEMISTRY METHOD 05/26/2025 7:11 AM EDT [facility] Chol/HDL Ratio 4.4 0.0 - 4.4 LAB CHEMISTRY METHOD 05/26/2025 7:11 AM [facility] Blood Venous blood specimen / Unknown 05/26/2025 6:00 AM EDT 05/26/2025 6:36 AM EDT us Felix Iglesias MD LAB BLOOD ORDERABLES Final Resul t Performing Organization Address [facility] Co de Phone Number [facility] [address] [place] [address], [place] [phone] * Levetiracetam level (05/26/2025 6:00 AM EDT) Levetiracetam 6.0 3.0 - 60.0 ug/mL 05/28/2025 6:16 AM EDT [facility] Comment: Steady state trough serum or plasma levels following doses of 1000 to 3000 mg/Day: 3 to 37 ug/mL. The same dosage regimen will typically result in peak levels of 10 to 60 ug/mL, at approximately 1.5 hours post dose. If applicable, any drug confirmation testing reported here was developed and the performance characteristics determined by [facility]. This confirmation testing has not been cleared or approved by the FDA. The laboratory is regulated under CLIA as qualified to perform high-complexity testing. This test is used for patient testing purposes. It should not be regarded as investigational or for research. Test performed at [facility], [email or web address] [place] [address] Aleta Lipscomb MD, PhD - Manager Of Network Blood Venous blood specimen / Unknown 05/26/2025 6:00 AM EDT 05/26/2025 6:36 AM EDT us Felix Iglesias MD LAB BLOOD ORDERABLES Final Resul t [facility] [address] [place] [address] * Carbamazepine level, total (05/26/2025 6:00 AM EDT) Carbamazepine Level 10.4 8.0 - 12.0 mcg/mL LAB CHEMISTRY METHOD 05/26/2025 7:11 AM EDT [facility] Blood Venous blood specimen / Unknown 05/26/2025 6:00 AM EDT 05/26/2025 6:36 AM EDT us Felix Iglesias MD LAB BLOOD ORDERABLES Final Resul t [facility] [address] [place] [address], * (ABNORMAL) Comprehensive metabolic panel (04/14/2025 6:47 AM EDT) Sodium 141 133 - 145 mmol/L LAB CHEMISTRY METHOD 04/14/2025 8:38 AM T [facility] Potassium 4.4 3.5 - 5.5 mmol/L LAB CHEMISTRY METHOD 04/14/2025 8:38 AM [facility] Chloride 106 96 - 110 mmol/L LAB CHEMISTRY METHOD 04/14/2025 8:38 AM [facility] CO2 31 21 - 32 mmol/L LAB CHEMISTRY METHOD 04/14/2025 8:38 AM [facility] Anion Gap 4 3 - 11 LAB CHEMISTRY METHOD 04/14/2025 8:38 AM [facility] Glucose 95 70 - 100 mg/dL LAB CHEMISTRY METHOD 04/14/2025 8:38 AM [facility] BUN 12 5 - 25 mg/dL LAB CHEMISTRY METHOD 04/14/2025 8:38 AM [facility] Creatinine 0.80 0.70 - 1.30 mg/dL LAB CHEMISTRY METHOD 04/14/2025 8:38 AM [facility] eGFR 118 >=60 mL/min/1. 73m2 LAB CHEMISTRY METHOD 04/14/2025 8:38 AM [facility] Comment:Calculation based on the Chronic Kidney Disease Epidemiology Collaboration (CKD-EPI) equation refit without adjustment for race. BUN/Creatinine Ratio 15.0 LAB CHEMISTRY METHOD 04/14/2025 8:38 AM [facility] Calcium 8.9 8.5 - 10.5 mg/dL LAB CHEMISTRY METHOD 04/14/2025 8:38 AM EDT [facility] AST (SGOT) 9(L) 10 - 42 unit/L LAB CHEMISTRY METHOD 04/14/2025 8:38 AM EDT [facility] ALT (SGPT) 21 10 - 60 unit/L LAB CHEMISTRY METHOD 04/14/2025 8:38 AM EDT [facility] Alkaline Phosphatase 90 42 - 121 unit/L LAB CHEMISTRY METHOD 04/14/2025 8:38 AM EDT [facility] Total Protein 6.3 6.0 - 8.0 g/dL LAB CHEMISTRY METHOD 04/14/2025 8:38 AM EDT [facility] Albumin 3.3 3.2 - 5.0 g/dL LAB CHEMISTRY METHOD 04/14/2025 8:38 AM EDT [facility] Total Bilirubin 0.2 0.0 - 1.4 mg/dL LAB CHEMISTRY METHOD 04/14/2025 8:38 AM EDT [facility] Blood Venous blood specimen / Unknown 04/14/2025 6:47 AM EDT 04/14/2025 7:34 AM EDT us Felix Iglesias MD LAB BLOOD ORDERABLES Final Resul t [facility] [address] [place] [address], from Last 3 Months Insurance MEDICAID - [place] Member Subscriber Plan / Payer (Ef fective 2025-Present) Name:Sukhwinder Caputo Member ID:[id number] Relation to Subscriber:Self Name:Sukhwinder Caputo Subscriber ID:[id number] Payer ID:[id number] Group ID:Not on file Type:Not on file Address: [facility] [address] [id number] Care Teams Cyber Engineer Relationship Specialty Start Date End Date Felix Iglesias MD [address] [place] [address] [address] [place] Dan PCP - General Internal Medicine 11/25/24
--- OUTSIDE RECORDS SUMMARY | 2025-06-23 16:43 | XMS_ITS | Encounter Summary ---
Author Organization [facility] Address [address] [place] [address] Care Team Providers Care Load Manager Name Role Phone Felix Iglesias MD Primary Care Provider [phone] Encounter Details Date Type Department Care Team (Late st Contact Info) Description 03/17/2025 Lab Requisition [facility] [address] [facility] [place] [phone] Felix Iglesias MD [address] [place] [address] Dr [address] [place] MD Encounter for therapeutic drug level monitoring Social History Tobacco Use Types Packs/Day Years [...] Diagnosis Comments CBC WITH AUTO DIFFERENTIAL Routine 03/17/2025 6:19 AM EDT Encounter for therapeutic drug level monitoring CBC AND DIFFERENTIAL Routine 03/17/2025 6:19 AM EDT Encounter for therapeutic drug level monitoring documented in this encounter Results * CBC auto differential (03/17/2025 6:19 AM EDT) WBC 10.0 4.8 - 10.8 K/mcL LAB HEMETOLOGY METHOD 03/17/2025 7:26 AM EDT [facility] RBC 4.80 4.50 - 5.50 M/mcL LAB HEMETOLOGY METHOD 03/17/2025 7:26 AM EDT [facility] Hemoglobin 14.6 13.5 - 17.5 g/dL LAB HEMETOLOGY METHOD 03/17/2025 7:26 AM [facility] Hematocrit 43.6 42.0 - 54.0 % LAB HEMETOLOGY METHOD 03/17/2025 7:26 AM [facility] MCV 90.6 79.0 - 98.0 FL LAB HEMETOLOGY METHOD 03/17/2025 7:26 AM [facility] MCH 30.4 27.0 - 32.0 pcg LAB HEMETOLOGY METHOD 03/17/2025 7:26 AM [facility] MCHC 33.5 32.0 - 37.0 g/dL LAB HEMETOLOGY METHOD 03/17/2025 7:26 AM [facility] RDW 12.2 11.0 - 15.0 % LAB HEMETOLOGY METHOD 03/17/2025 7:26 AM [facility] Platelets 275 130 - 400 K/mcL LAB HEMETOLOGY METHOD 03/17/2025 7:26 AM [facility] MPV 10.0 7.0 - 11.0 FL LAB HEMETOLOGY METHOD 03/17/2025 7:26 AM [facility] NRBC 0.0 <1.0 % LAB HEMETOLOGY METHOD 03/17/2025 7:26 AM [facility] NRBC Absolute 0.00 <0.10 K/mcL LAB HEMETOLOGY METHOD 03/17/2025 7:26 AM [facility] Neutrophils Relative 57.5 % LAB HEMETOLOGY METHOD 03/17/2025 7:26 AM [facility] Lymphocytes Relative 30.6 % LAB HEMETOLOGY METHOD 03/17/2025 7:26 AM [facility] Monocytes Relative 7.2 % LAB HEMETOLOGY METHOD 03/17/2025 7:26 AM [facility] Eosinophils Relative 3.8 % LAB HEMETOLOGY METHOD 03/17/2025 7:26 AM EDT [facility] Basophils Relative 0.6 % LAB HEMETOLOGY METHOD 03/17/2025 7:26 AM [facility] Immature Granulocytes Relative 0.3 % LAB HEMETOLOGY METHOD 03/17/2025 7:26 AM EDT [facility] Neutrophils Absolute 5.72 1.50 - 7.00 K/mcL LAB HEMETOLOGY METHOD 03/17/2025 7:26 AM EDT [facility] Lymphocytes Absolute 3.05 1.00 - 5.00 K/mcL LAB [facility] Monocytes Absolute 0.72 0.20 - 1.00 K/mcL LAB HEMETOLOGY METHOD 03/17/2025 7:26 AM T [facility] Eosinophils Absolute 0.38 0.00 - 0.50 K/mcL LAB HEMETOLOGY METHOD 03/17/2025 7:26 AM T [facility] Basophils Absolute 0.06 0.00 - 0.20 K/mcL LAB HEMETOLOGY METHOD 03/17/2025 7:26 AM [facility] Immature Granulocytes Absolute 0.03 0.00 - 0.03 K/mcL LAB HEMETOLOGY METHOD 03/17/2025 7:26 AM T [facility] Blood Venous blood specimen / Unknown 03/17/2025 6:19 AM EDT 03/17/2025 7:15 AM EDT us Felix Iglesias MD LAB BLOOD ORDERABLES Final Resul t [facility] [address] [place] [address], documented in this encounter Visit Diagnoses Diagnosis Encounter for therapeutic drug level monitoring documented in this encounter Care Teams Load Manager Relationship Specialty Start Date End Date Felix Iglesias MD [address] [place] [address] Dr [address] [place]GRA Dan PCP - General Internal Medicine 11/25/24 documented as of this encounter
--- OUTSIDE RECORDS SUMMARY | 2025-06-23 16:43 | XMS_ITS | Encounter Summary ---
Author Organization [facility] Address [address] [place] [address] Care Team Providers Care Inspector Dials Name Role Phone Felix Iglesias MD Primary Care Provider [phone] Encounter Details Date Type Department Care Team (Late st Contact Info) Description 05/26/2025 Lab Requisition [facility] - Main Lab [address] [facility] [place] [address] Felix Iglesias MD [address] [place] [address] Dr [address] [place] Dan Hyperlipidemia, unspecified; Other terminal gauger (current) drug therapy Social History Tobacco Use [...] 05/26/2025 6:00 AM EDT Hyperlipidemia, unspecified Other fdc (current) drug therapy CBC WITH AUTO DIFFERENTIAL Routine 05/26/2025 6:00 AM EDT Hyperlipidemia, unspecified Other terminal gauger (current) drug therapy LEVETIRACETAM LEVEL Routine 05/26/2025 6 :00 AM EDT Hyperlipidemia, unspecified Other terminal gauger (current) drug therapy CBC AND DIFFERENTIAL Routine 05/26/2025 6:00 AM EDT Hyperlipidemia, unspecified Other terminal gauger (current) drug therapy CARBAMAZEPINE LEVEL, TOTAL Routine 05/26/2025 6:00 AM EDT Hyperlipidemia, unspecified Other fdc (current) drug therapy documented in this encounter Results * CBC auto differential (05/26/2025 6:00 AM EDT) [facility] Signature WBC 9.6 4.8 - 10.8 K/mcL LAB HEMETOLOGY METHOD 05/26/2025 7:04 AM [facility] RBC 4.90 4.50 - 5.50 M/mcL LAB HEMETOLOGY METHOD 05/26/2025 7:04 AM [facility] Hemoglobin 14.6 13.5 - 17.5 g/dL LAB HEMETOLOGY METHOD 05/26/2025 7:04 AM [facility] Hematocrit 43.9 42.0 - 54.0 % LAB HEMETOLOGY METHOD 05/26/2025 7:04 AM [facility] MCV 89.8 79.0 - 98.0 FL LAB HEMETOLOGY METHOD 05/26/2025 7:04 AM [facility] MCH 29.9 27.0 - 32.0 pcg LAB HEMETOLOGY METHOD 05/26/2025 7:04 AM [facility] MCHC 33.3 32.0 - 37.0 g/dL LAB HEMETOLOGY METHOD 05/26/2025 7:04 AM [facility] RDW 12.3 11.0 - 15.0 % LAB HEMETOLOGY METHOD 05/26/2025 7:04 AM [facility] Platelets 277 130 - 400 K/mcL LAB HEMETOLOGY METHOD 05/26/2025 7:04 AM [facility] MPV 9.8 7.0 - 11.0 FL LAB HEMETOLOGY METHOD 05/26/2025 7:04 AM [facility] NRBC 0.0 <1.0 % LAB HEMETOLOGY METHOD 05/26/2025 7:04 AM [facility] NRBC Absolute 0.00 <0.10 K/mcL LAB HEMETOLOGY METHOD 05/26/2025 7:04 AM [facility] Neutrophils Relative 59.9 % LAB HEMETOLOGY METHOD 05/26/2025 7:04 AM [facility] Lymphocytes Relative 28.5 % LAB HEMETOLOGY METHOD 05/26/2025 7:04 AM [facility] Monocytes Relative 7.3 % LAB HEMETOLOGY METHOD 05/26/2025 7:04 AM [facility] Eosinophils Relative 3.8 % LAB HEMETOLOGY METHOD 05/26/2025 7:04 AM [facility] Basophils Relative 0.3 % LAB HEMETOLOGY METHOD 05/26/2025 7:04 AM [facility] Immature Granulocytes Relative 0.2 % LAB HEMETOLOGY METHOD 05/26/2025 7:04 AM [facility] Neutrophils Absolute 5.77 1.50 - 7.00 K/mcL LAB HEMETOLOGY METHOD 05/26/2025 7:04 AM [facility] Lymphocytes Absolute 2.75 1.00 - 5.00 K/mcL LAB HEMETOLOGY METHOD 05/26/2025 7:04 AM [facility] Monocytes Absolute 0.70 0.20 - 1.00 K/mcL LAB HEMETOLOGY METHOD 05/26/2025 7:04 AM [facility] Eosinophils Absolute 0.37 0.00 - 0.50 K/mcL LAB HEMETOLOGY METHOD 05/26/2025 7:04 AM [facility] Basophils Absolute 0.03 0.00 - 0.20 K/mcL LAB HEMETOLOGY METHOD 05/26/2025 7:04 AM [facility] Immature Granulocytes Absolute 0.02 0.00 - 0.03 K/mcL LAB HEMETOLOGY METHOD 05/26/2025 7:04 AM EDT [facility] Blood Venous blood specimen / Unknown 05/26/2025 6:00 AM EDT 05/26/2025 6:36 AM EDT us Felix Iglesias MD LAB BLOOD ORDERABLES Final Resul t Performing Organization Address [facility]/ZIP Co de Phone Number [facility] [address] [place] [address], [place] [phone] * Carbamazepine level, total (05/26/2025 6:00 AM EDT) Carbamazepine Level 10.4 8.0 - 12.0 mcg/mL LAB CHEMISTRY METHOD 05/26/2025 7:11 AM EDT [facility] Blood Venous blood specimen / Unknown 05/26/2025 6:00 AM EDT 05/26/2025 6:36 AM EDT us Felix Iglesias MD LAB BLOOD ORDERABLES Final Resul t Performing Organization Address [facility]/ZIP Co de Phone Number [facility] [address] [place] [address], [place] [phone] * Levetiracetam level (05/26/2025 6:00 AM EDT) Levetiracetam 6.0 3.0 - 60.0 ug/mL 05/28/2025 6:16 AM EDT [facility] Comment: Steady state trough serum or plasma levels following doses of 1000 to 3000 mg/Day: 3 to 37 ug/mL. The same dosage regimen will typically result in peak levels of 10 to 60 ug/mL, at approximately 1.5 hours post dose. If applicable, any drug confirmation testing reported here was developed and the performance characteristics determined by [employer]. This confirmation testing has not been cleared or approved by the FDA. The laboratory is regulated under CLIA as qualified to perform high-complexity testing. This test is used for patient testing purposes. It should not be regarded as investigational or for research. Test performed at [facility], [address], [place] [address] Aleta Lipscomb MD, PhD - Operating Room Nurse Blood Venous blood specimen / Unknown 05/26/2025 6:00 AM EDT 05/26/2025 6:36 AM EDT us Felix Iglesias MD LAB BLOOD ORDERABLES Final Resul t [facility] [address] [place] [address] * (ABNORMAL) Lipid panel with reflex to direct LDL (05/26/2025 6:00 AM EDT) Cholesterol 197 0 - 200 mg/dL LAB CHEMISTRY METHOD 05/26[facility]2025 7[facility] Triglycerides 126 0 - 150 mg/dL LAB CHEMISTRY METHOD 05/26/2025 7:11 AM [facility] HDL 45 >=40 mg/dL LAB CHEMISTRY METHOD 05/26/2025 7:11 AM [facility] LDL Calculated 127(H) 0 - 100 mg/dL LAB CHEMISTRY METHOD 05/26/2025 7:11 AM [facility] Comment:Estimated LDL Calcul ated using equation: Total cholesterol - HDL cholesterol - (Triglycerides/5) VLDL Cholesterol Amadeo 25.2 mg/dL LAB CHEMISTRY METHOD 05/26/2025 7:11 AM [facility] Non HDL Chol. (LDL+VLDL) 152(H) <145 mg/dL LAB CHEMISTRY METHOD 05/26/2025 7:11 AM [facility] Chol/HDL Ratio 4.4 0.0 - 4.4 LAB CHEMISTRY METHOD 05/26/2025 7:11 AM [facility] Blood Venous blood specimen / Unknown 05/26/2025 6:00 AM EDT 05/26/2025 6:36 AM EDT us Felix Iglesias MD LAB BLOOD ORDERABLES Final Resul t [facility] ([facility]) [facility] [address] [place] [address], [place] [phone] documented in this encounter Visit Diagnoses Diagnosis Hyperlipidemia, unspecified Other fdc (current) drug therapy documented in this encounter Care Teams Inspector Dials Relationship Specialty Start Date End Date Felix Iglesias MD [address] [place] [address] Dr [address] [place], [place] PCP - General Internal Medicine 11/25/24 documented as of this encounter
--- OUTSIDE RECORDS SUMMARY | 2025-06-23 16:43 | XMS_ITS | Encounter Summary ---
Author Organization [facility] Address [address] [place] [address] Care Team Providers Care Developer Trading Systems Name Role Phone Felix Iglesias MD Primary Care Provider [phone] Encounter Details Date Type Department Care Team (Late st Contact Info) Description 06/08/2025 Lab Requisition [facility] - Main Lab 299 [facility] [place] [address] Felix Iglesias MD [address] [place] [address] Dr [address] [place] Other correction (current) drug therapy; Encounter for therapeutic drug level monitoring Social [...] GOLD Routine 06/08/2025 1:15 PM EDT Other continuous churn buttermaker (current) drug therapy Encounter for therapeutic drug level monitoring CBC WITH AUTO DIFFERENTIAL Routine 06/08/2025 1:15 PM EDT Other correction (current) drug therapy Encounter for therapeutic drug level monitoring CBC AND DIFFERENTIAL Routine 06/08/2025 1:15 PM EDT Other continuous churn buttermaker (current) drug therapy Encounter for therapeutic drug level monitoring documented in this encounter Results * SST tube (06/08/2025 1:15 PM EDT) Extra Tube Hold for add-ons. 06/08/2025 4:01 PM EDT [facility] ([facility]) [facility] Comment:Auto resulted. Blood Venous blood specimen / Unknown 06/08/2025 1:15 PM EDT 06/08/2025 2:08 PM EDT us Felix Iglesias MD LAB BLOOD ORDERABLES Final Resul t [facility] [address] [place] [address], [place] [phone] * (ABNORMAL) CBC auto differential (06/08/2025 1:15 PM EDT) WBC 12.3(H) 4.8 - 10.8 K/mcL LAB HEMETOLOGY METHOD 06/08/2025 2:28 PM EDT [facility] RBC 5.00 4.50 - 5.50 M/mcL LAB HEMETOLOGY METHOD 06/08/2025 2:28 PM EDT [facility] Hemoglobin 15.1 13.5 - 17.5 g/dL LAB HEMETOLOGY METHOD 06/08/2025 2:28 PM EDT [facility] Hematocrit 46.3 42.0 - 54.0 % LAB HEMETOLOGY METHOD 06/08/2025 2:28 PM EDT [facility] MCV 92.2 79.0 - 98.0 FL LAB HEMETOLOGY METHOD 06/08/2025 2:28 PM EDT [facility] MCH 30.1 27.0 - 32.0 pcg LAB HEMETOLOGY METHOD 06/08/2025 2:28 PM EDT [facility] MCHC 32.6 32.0 - 37.0 g/dL LAB HEMETOLOGY METHOD 06/08/2025 2:28 PM EDT [facility] RDW 12.4 11.0 - 15.0 % LAB HEMETOLOGY METHOD 06/08/2025 2:28 PM EDT [facility] Platelets 325 130 - 400 K/mcL LAB HEMETOLOGY METHOD 06/08/2025 2:28 PM EDT [facility] MPV 10.1 7.0 - 11.0 FL LAB HEMETOLOGY METHOD 06/[facility]25 [facility] NRBC 0.0 <1.0 % LAB HEMETOLOGY METHOD 06/08/2025 2:28 PM [facility] NRBC Absolute 0.00 <0.10 K/mcL LAB HEMETOLOGY METHOD 06/08/2025 2:28 PM [facility] Neutrophils Relative 58.1 % LAB HEMETOLOGY METHOD 06/08/2025 2:28 PM [facility] Lymphocytes Relative 29.2 % LAB HEMETOLOGY METHOD 06/08/2025 2:28 PM [facility] Monocytes Relative 8.3 % LAB HEMETOLOGY METHOD 06/08/2025 2:28 PM [facility] Eosinophils Relative 3.6 % LAB HEMETOLOGY METHOD 06/08/2025 2:28 PM [facility] Basophils Relative 0.5 % LAB HEMETOLOGY METHOD 06/08/2025 2:28 PM [facility] Immature Granulocytes Relative 0.3 % LAB HEMETOLOGY METHOD 06/08/2025 2:28 PM [facility] Neutrophils Absolute 7.11(H) 1.50 - 7.00 K/mcL LAB HEMETOLOGY METHOD 06/08/2025 2:28 PM [facility] Lymphocytes Absolute 3.58 1.00 - 5.00 K/mcL LAB HEMETOLOGY METHOD 06/08/2025 2:28 PM [facility] Monocytes Absolute 1.02(H) 0.20 - 1.00 K/mcL LAB HEMETOLOGY METHOD 06/08/2025 2:28 PM [facility] Eosinophils Absolute 0.44 0.00 - 0.50 K/mcL LAB HEMETOLOGY METHOD 06/08/2025 2:28 PM EDT [facility] Basophils Absolute 0.06 0.00 - 0.20 K/mcL LAB HEMETOLOGY METHOD 06/08/2025 2:28 PM EDT [facility] Immature Granulocytes Absolute 0.04(H) 0.00 - 0.03 K/mcL LAB HEMETOLOGY METHOD 06/08/2025 2:28 PM EDT [facility] Blood Venous blood specimen / Unknown 06/08/2025 1:15 PM EDT 06/08/2025 2:08 PM EDT us Felix Iglesias MD LAB BLOOD ORDERABLES Final Resul t [facility] [address] [place] [address], documented in this encounter Visit Diagnoses Diagnosis Other correction (current) drug therapy Encounter for therapeutic drug level monitoring documented in this encounter Care Teams Developer Trading Systems Relationship Specialty Start Date End Date Felix Iglesias MD [address] [facility] [address] [place] PCP - General Internal Medicine 11/25/24 documented as of this encounter
--- OUTSIDE RECORDS SUMMARY | 2025-06-23 16:43 | XMS_ITS | Encounter Summary ---
[facility] Address [address] [place] [address] Care Team Providers Care Metal Base Blocker Name Role Phone Felix Iglesias MD Primary Care Provider [phone] Encounter Details Date Type Department Care Team (Late st Contact Info) Description 12/23/2024 Lab Requisition [facility] Lab [address] [facility] [place] [address] Felix Iglesias MD [address] [place] [address] [address] [place], [place] Other fci (current) drug therapy Social History Tobacco Use [...] Diagnosis Comments CBC WITH AUTO DIFFERENTIAL Routine 12/23/2024 4:40 AM EDT Other fci (current) drug therapy CBC AND DIFFERENTIAL Routine 12/23/2024 4:40 AM EDT Other fci (current) drug therapy documented in this encounter Results * CBC auto differential (12/23/2024 4:40 AM EDT) WBC 10.4 4.8 - 10.8 K/[facility] LAB HEMETOLOGY METHOD 12/23/2024 5:44 AM EDT [facility] RBC 4.70 4.50 - 5.50 M/mcL LAB HEMETOLOGY METHOD 12/23/2024 5:44 AM EDT [facility] Hemoglobin 14.3 13.5 - 17.5 g/dL LAB HEMETOLOGY METHOD 12/23/2024 5:44 AM [facility] Hematocrit 42.6 42.0 - 54.0 % LAB HEMETOLOGY METHOD 12/23/2024 5:44 AM [facility] MCV 90.8 79.0 - 98.0 FL LAB HEMETOLOGY METHOD 12/23/2024 5:44 AM [facility] MCH 30.5 27.0 - 32.0 pcg LAB HEMETOLOGY METHOD 12/23/2024 5:44 AM [facility] MCHC 33.6 32.0 - 37.0 g/dL LAB HEMETOLOGY METHOD 12/23/2024 5:44 AM [facility] RDW 12.3 11.0 - 15.0 % LAB HEMETOLOGY METHOD 12/23/2024 5:44 AM [facility] Platelets 287 130 - 400 K/mcL LAB HEMETOLOGY METHOD 12/23/2024 5:44 AM [facility] MPV 9.8 7.0 - 11.0 FL LAB HEMETOLOGY METHOD 12/23/2024 5:44 AM [facility] NRBC 0.0 <1.0 % LAB HEMETOLOGY METHOD 12/23/2024 5:44 AM [facility] NRBC Absolute 0.00 <0.10 K/mcL LAB HEMETOLOGY METHOD 12/23/2024 5:44 AM [facility] Neutrophils Relative 54.2 % LAB HEMETOLOGY METHOD 12/23/2024 5:44 AM [facility] Lymphocytes Relative 33.2 % LAB HEMETOLOGY METHOD 12/23/2024 5:44 AM [facility] Monocytes Relative 7.9 % LAB HEMETOLOGY METHOD 12/23/2024 5:44 AM [facility] Eosinophils Relative 4.0 % LAB HEMETOLOGY METHOD 12/23/2024 5:44 AM EDT [facility] Basophils Relative 0.4 % LAB HEMETOLOGY METHOD 12/23/2024 5:44 AM EDT [facility] Immature Granulocytes Relative 0.3 % LAB HEMETOLOGY METHOD 12/23/2024 5:44 AM EDT [facility] Neutrophils Absolute 5.62 1.50 - 7.00 K/mcL LAB HEMETOLOGY METHOD 12/23/2024 5:44 AM EDT [facility] Lymphocytes Absolute 3.44 1.00 - 5.00 K/mcL LAB HEMETOLOGY METHOD 12/23/2024 5:44 AM EDT [facility] Monocytes Absolute 0.82 0.20 - 1.00 K/mcL LAB HEMETOLOGY METHOD 12/23/2024 5:44 AM EDT [facility] Eosinophils Absolute 0.41 0.00 - 0.50 K/mcL LAB HEMETOLOGY METHOD 12/23/2024 5:44 AM EDT [facility] Basophils Absolute 0.04 0.00 - 0.20 K/mcL LAB HEMETOLOGY METHOD 12/23/2024 5:44 AM EDT [facility] Immature Granulocytes Absolute 0.03 0.00 - 0.03 K/mcL LAB HEMETOLOGY METHOD 12/23/2024 5:44 AM EDT [facility] Blood Venous blood specimen / Unknown 12/23/2024 4:40 AM EDT 12/23/2024 5:41 AM EDT us Felix Iglesias MD LAB BLOOD ORDERABLES Final Resul t [facility] [address] [place] [address], documented in this encounter Visit Diagnoses Diagnosis Other fci (current) drug therapy documented in this encounter Care Teams Metal Base Blocker Relationship Specialty Start Date End Date Felix Iglesias MD [address] [place] [address] [address] [place] PCP - General Internal Medicine 11/25/24 documented as of this encounter
--- OUTSIDE RECORDS SUMMARY | 2025-06-23 16:43 | XMS_ITS | Encounter Summary ---
Author Organization [facility]ie [facility] Address [address] [place] [address] Care Team Providers Care Supervisor Cutting Department Name Role Phone Felix Iglesias MD Primary Care Provider [phone] Encounter Details Date Type Department Care Team (Late st Contact Info) Description 04/14/2025 Lab Requisition [facility] [address] [place] [address] Felix Iglesias MD [address] [place] [address] Dr [address] [place], [place] Other terminal computer operator (current) drug therapy Social History Tobacco Use [...] Diagnosis Comments CBC WITH AUTO DIFFERENTIAL Routine 04/14/2025 6:47 AM EDT Other residential (current) drug therapy CBC AND DIFFERENTIAL Routine 04/14/2025 6:47 AM EDT Other residential (current) drug therapy COMPREHENSIVE METABOLIC PANEL Routine 04/14/2025 6:47 AM EDT Other residential (current) drug therapy documented in this encounter Results * CBC auto differential (04/14/2025 6:47 AM EDT) [facility] Signature WBC 9.2 4.8 - 10.8 K/[facility] LAB HEMETOLOGY METHOD 04/14/2025 8:01 AM EDT [facility] RBC 4.90 4.50 - 5.50 M/[facility] LAB HEMETOLOGY METHOD 04/14/2025 8:01 AM [facility] Hemoglobin 14.6 13.5 - 17.5 g/dL LAB HEMETOLOGY METHOD 04/14/2025 8:01 AM [facility] Hematocrit 44.4 42.0 - 54.0 % LAB HEMETOLOGY METHOD 04/14/2025 8:01 AM [facility] MCV 90.2 79.0 - 98.0 FL LAB HEMETOLOGY METHOD 04/14/2025 8:01 AM [facility] MCH 29.7 27.0 - 32.0 pcg LAB HEMETOLOGY METHOD 04/14/2025 8:01 AM [facility] MCHC 32.9 32.0 - 37.0 g/dL LAB HEMETOLOGY METHOD 04/14/2025 8:01 AM [facility] RDW 12.4 11.0 - 15.0 % LAB HEMETOLOGY METHOD 04/14/2025 8:01 AM [facility] Platelets 266 130 - 400 K/mcL LAB HEMETOLOGY METHOD 04/14/2025 8:01 AM [facility] MPV 9.9 7.0 - 11.0 FL LAB HEMETOLOGY METHOD 04/14/2025 8:01 AM [facility] NRBC 0.0 <1.0 % LAB HEMETOLOGY METHOD 04/14/2025 8:01 AM [facility] NRBC Absolute 0.00 <0.10 K/mcL LAB HEMETOLOGY METHOD 04/14/2025 8:01 AM [facility] Neutrophils Relative 61.3 % LAB HEMETOLOGY METHOD 04/14/2025 8:01 AM [facility] Lymphocytes Relative 27.8 % LAB HEMETOLOGY METHOD 04/14/2025 8:01 AM [facility] Monocytes Relative 6.8 % LAB HEMETOLOGY METHOD 04/14/2025 8:01 AM EDT [facility] Eosinophils Relative 3.4 % LAB HEMETOLOGY METHOD 04/14/2025 8:01 AM [facility] Basophils Relative 0.4 % LAB HEMETOLOGY METHOD 04/14/2025 8:01 [facility] Immature Granulocytes Relative 0.3 % LAB HEMETOLOGY METHOD 04/14/2025 8:01 [facility] Neutrophils Absolute 5.62 1.50 - 7.00 K/mcL LAB HEMETOLOGY METHOD 04/14/2025 8:01 [facility] Lymphocytes Absolute 2.55 1.00 - 5.00 K/mcL LAB HEMETOLOGY METHOD 04/14/2025 8:01 AM [facility] Monocytes Absolute 0.62 0.20 - 1.00 K/mcL LAB HEMETOLOGY METHOD 04/14/2025 8:01 [facility] Eosinophils Absolute 0.31 0.00 - 0.50 K/mcL LAB HEMETOLOGY METHOD 04/14/2025 8:01 AM [facility] Basophils Absolute 0.04 0.00 - 0.20 K/mcL LAB HEMETOLOGY METHOD 04/14/2025 8:01 AM [facility] Immature Granulocytes Absolute 0.03 0.00 - 0.03 K/mcL LAB HEMETOLOGY METHOD 04/14/2025 8:01 AM [facility] Blood Venous blood specimen / Unknown 04/14/2025 6:47 AM EDT 04/14/2025 7:34 AM EDT us Felix Iglesias MD LAB BLOOD ORDERABLES Final Resul t [facility] [address] [place] [address], [place] [phone] * (ABNORMAL) Comprehensive metabolic panel (04/14/2025 6:47 AM EDT) Sodium 141 133 - 145 mmol/L LAB CHEMISTRY METHOD 04/14/2025 8:38 AM [facility] Potassium 4.4 3.5 - 5.5 mmol/L LAB CHEMISTRY METHOD 04/14/2025 8:38 AM [facility] Chloride 106 96 - 110 mmol/L LAB CHEMISTRY METHOD 04/14/2025 8:38 AM [facility] CO2 31 21 - 32 mmol/L LAB CHEMISTRY METHOD 04/14/2025 8:38 AM [facility] Anion Gap 4 3 - 11 LAB CHEMISTRY METHOD 04/14/2025 8:38 AM [facility] Glucose 95 70 - 100 mg/dL LAB CHEMISTRY METHOD 04/14/2025 8:38 AM [facility] BUN 12 5 - 25 mg/dL LAB CHEMISTRY METHOD 04/14/2025 8:38 AM [facility] Creatinine 0.80 0.70 - 1.30 mg/dL LAB CHEMISTRY METHOD 04/14/2025 8:38 AM [facility] eGFR 118 >=60 mL/min/1. 73m2 LAB CHEMISTRY METHOD 04/14/2025 8:38 AM [facility] Comment:Calculation based on the Chronic Kidney Disease Epidemiology Collaboration (CKD-EPI) equation refit without adjustment for race. BUN/Creatinine Ratio 15.0 LAB CHEMISTRY METHOD 04/14/2025 8:38 AM [facility] Calcium 8.9 8.5 - 10.5 mg/dL LAB CHEMISTRY METHOD 04/14/2025 8:38 AM [facility] AST (SGOT) 9(L) 10 - 42 unit/L LAB CHEMISTRY METHOD 04/14/2025 8:38 AM EDT [facility] ALT (SGPT) 21 10 - 60 unit/L LAB CHEMISTRY METHOD 04/14/2025 8:38 AM T [facility] Alkaline Phosphatase 90 42 - 121 unit/L LAB CHEMISTRY METHOD 04/14/2025 8:38 AM [facility] Total Protein 6.3 6.0 - 8.0 g/dL LAB CHEMISTRY METHOD 04/14/2025 8:38 AM [facility] Albumin 3.3 3.2 - 5.0 g/dL LAB CHEMISTRY METHOD 04/14/2025 8:38 AM [facility] Total Bilirubin 0.2 0.0 - 1.4 mg/dL LAB CHEMISTRY METHOD 04/14/2025 8:38 AM [facility] Blood Venous blood specimen / Unknown 04/14/2025 6:47 AM EDT 04/14/2025 7:34 AM EDT us Felix Iglesias MD LAB BLOOD ORDERABLES Final Resul t [facility] [address] [place] [address], documented in this encounter Visit Diagnoses Diagnosis Other residential (current) drug therapy documented in this encounter Care Teams Supervisor Cutting Department Relationship Specialty Start Date End Date Felix Iglesias MD [address] [place] [address] Dr [address] [facility] [place], [place] PCP - General Internal Medicine 11/25/24 documented as of this encounter
--- OUTSIDE RECORDS SUMMARY | 2025-06-23 16:43 | XMS_ITS | Encounter Summary ---
Author Organization [facility] Address [address] [place] [address] Care Team Providers Care Mechanical Maintenance Instructor Name Role Phone Felix Iglesias MD Primary Care Provider [phone] Encounter Details Date Type Department Care Team (Late st Contact Info) Description 10/28/[address] [facility] - Main Lab [address] [place] [address] Felix Iglesias MD [address] [place] [address] [address] [place], [place] Hyperlipidemia, unspecified; Other bed bug exterminator (current) drug therapy Social History Tobacco Use [...] Diagnosis Comments CBC WITH AUTO DIFFERENTIAL Routine 10/28/2024 7:05 AM EST Hyperlipidemia, unspecified Other retirement (current) drug therapy CBC AND DIFFERENTIAL Routine 10/28/2024 7:05 AM EST Hyperlipidemia, unspecified Other retirement (current) drug therapy COMPREHENSIVE METABOLIC PANEL Routine 10/28/2024 7:05 AM EST Hyperlipidemia, unspecified Other bed bug exterminator (current) drug therapy documented in this encounter Results * CBC auto differential (10/28/2024 7:05 AM EST) WBC 10.3 4.8 - 10.8 K/[facility] LAB HEMETOLOGY METHOD 10/28/2024 8:[address] [facility] RBC 5.20 4.50 - 5.50 M/mcL LAB HEMETOLOGY METHOD 10/28/2024 8:00 AM [facility] LAB Hemoglobin 15.8 13.5 - 17.5 g/dL LAB HEMETOLOGY METHOD 10/28/2024 8:00 AM [facility] LAB Hematocrit 47.3 42.0 - 54.0 % LAB HEMETOLOGY METHOD 10/28/2024 8:00 AM [facility] LAB MCV 90.3 79.0 - 98.0 FL LAB HEMETOLOGY METHOD 10/28/2024 8:00 AM [facility] LAB MCH 30.2 27.0 - 32.0 pcg LAB HEMETOLOGY METHOD 10/28/2024 8:00 AM [facility] LAB MCHC 33.4 32.0 - 37.0 g/dL LAB HEMETOLOGY METHOD 10/28/2024 8:00 AM [facility] LAB RDW 12.4 11.0 - 15.0 % LAB HEMETOLOGY METHOD 10/28/2024 8:00 AM [facility] LAB Platelets 298 130 - 400 K/mcL LAB HEMETOLOGY METHOD 10/28/2024 8:00 AM [facility] LAB MPV 10.1 7.0 - 11.0 FL LAB HEMETOLOGY METHOD 10/28/2024 8:00 AM [facility] LAB NRBC 0.0 <1.0 % LAB HEMETOLOGY METHOD 10/28/2024 8:00 AM [facility] LAB NRBC Absolute 0.00 <0.10 K/mcL LAB HEMETOLOGY METHOD 10/28/2024 8:00 AM [facility] LAB Neutrophils Relative 62.9 % LAB HEMETOLOGY METHOD 10/28/2024 8:00 AM [facility] LAB Lymphocytes Relative 26.6 % LAB HEMETOLOGY METHOD 10/28/2024 8:00 AM [facility] Monocytes Relative 6.5 % LAB HEMETOLOGY METHOD 10/28/2024 8:00 AM [facility] Eosinophils Relative 3.4 % LAB HEMETOLOGY METHOD 10/28/2024 8:00 AM [facility] Basophils Relative 0.4 % LAB HEMETOLOGY METHOD 10/28/2024 8:00 AM [facility] Immature Granulocytes Relative 0.2 % LAB HEMETOLOGY METHOD 10/28/2024 8:00 AM [facility] Neutrophils Absolute 6.45 1.50 - 7.00 K/mcL LAB HEMETOLOGY METHOD 10/28/2024 8:00 AM [facility] Lymphocytes Absolute 2.73 1.00 - 5.00 K/mcL LAB HEMETOLOGY METHOD 10/28/2024 8:00 AM [facility] Monocytes Absolute 0.67 0.20 - 1.00 K/mcL LAB HEMETOLOGY METHOD 10/28/2024 8:00 AM EST [facility] Eosinophils Absolute 0.35 0.00 - 0.50 K/mcL LAB HEMETOLOGY METHOD 10/28/2024 8:00 AM [facility] Basophils Absolute 0.04 0.00 - 0.20 K/mcL LAB HEMETOLOGY METHOD 10/28/2024 8:00 AM [facility] Immature Granulocytes Absolute 0.02 0.00 - 0.03 K/mcL LAB HEMETOLOGY METHOD 10/28/2024 8:00 AM [facility] Blood Venous blood specimen / Unknown 10/28/2024 7:05 AM EST 10/28/2024 7:50 AM EST us Felix Iglesias MD LAB BLOOD ORDERABLES Final Resul t [facility] [address] [place] [address], * (ABNORMAL) Comprehensive metabolic panel (10/28/2024 7:05 AM EST) Sodium 140 133 - 145 mmol/L LAB CHEMISTRY METHOD 10/28/2024 8:40 AM [facility] Potassium 4.1 3.5 - 5.5 mmol/L LAB CHEMISTRY METHOD 10/28/2024 8:40 AM [facility] Chloride 107 96 - 110 mmol/L LAB CHEMISTRY METHOD 10/28/2024 8:40 AM [facility] CO2 26 21 - 32 mmol/L LAB CHEMISTRY METHOD 10/28/2024 8:40 AM [facility] Anion Gap 7 3 - 11 LAB CHEMISTRY METHOD 10/28/2024 8:40 AM [facility] Glucose 95 70 - 100 mg/dL LAB CHEMISTRY METHOD 10/28/2024 8:40 AM [facility] BUN 11 5 - 25 mg/dL LAB CHEMISTRY METHOD 10/28/2024 8:40 AM [facility] Creatinine 0.82 0.70 - 1.30 mg/dL LAB CHEMISTRY METHOD 10/28/2024 8:40 AM [facility] LAB eGFR 117 >=60 mL/min/1. 73m2 LAB CHEMISTRY METHOD 10/28/2024 8:40 AM [facility] LAB Comment:Calculation based on the Chronic Kidney Disease Epidemiology Collaboration (CKD-EPI) equation refit without adjustment for race. BUN/Creatinine Ratio 13.4 LAB CHEMISTRY METHOD 10/28/2024 8:40 AM [facility] Calcium 8.9 8.5 - 10.5 mg/dL LAB CHEMISTRY METHOD 10/28/2024 8:40 AM [facility] AST (SGOT) 11 10 - 42 unit/L LAB CHEMISTRY METHOD 10/28/2024 8:40 AM [facility] ALT (SGPT) 38 10 - 60 unit/L LAB CHEMISTRY METHOD 10/28/2024 8:40 AM EST [facility] Alkaline Phosphatase 132(H) 42 - 121 unit/L LAB CHEMISTRY METHOD 10/28/2024 8:40 AM EST [facility] Total Protein 7.2 6.0 - 8.0 g/dL LAB CHEMISTRY METHOD 10/28/2024 8:40 AM EST [facility] Albumin 3.7 3.2 - 5.0 g/dL LAB CHEMISTRY METHOD 10/28/2024 8:40 AM [facility] Total Bilirubin 0.4 0.0 - 1.4 mg/dL LAB CHEMISTRY METHOD 10/28/2024 8:40 AM [facility] Blood Venous blood specimen / Unknown 10/28/2024 7:05 AM EST 10/28/2024 7:50 AM EST us Felix Iglesias MD LAB BLOOD ORDERABLES Final Resul t [facility] [address] [place] [address], documented in this encounter Visit Diagnoses Diagnosis Hyperlipidemia, unspecified Other retirement (current) drug therapy documented in this encounter Care Teams Mechanical Maintenance Instructor Relationship Specialty Start Date End Date Felix Iglesias MD [address] [place] [address] Dr [address] [place], [place] PCP - General Internal Medicine 11/25/24 documented as of this encounter
== END 2025-06-23 13:05 | disposition home or self-care (01) ==
LOC: HO.HSM 12:08
PROVIDERS: PCP Hospitalist; Visit Provider Psychiatry & Neurology Neurology
DX: G40.509 Epileptic seizures related to external causes, not intractable, without status epilepticus (principal); Z96.89 Presence of other specified functional implants
CPT/HCPCS: 99214

== ENCOUNTER → 2025-06-23 12:07 | Outpatient (BNVA) | payer MEDICAID, SELFPAY | PROVIDERS: PCP Hospitalist; Visit Provider Psychiatry & Neurology Neurology | DX: G40.509 Epileptic seizures related to external causes, not intractable, without status epilepticus (principal); Z96.89 Presence of other specified functional implants | CPT/HCPCS: 99212 ==